=== PATIENT | male | born 1995 | race Hispanic/Latino ===

== ENCOUNTER 2020-03-23 19:46 | Emergency (ER) | payer MEDICAID, OTHER ==
[~2020-03-23 19:46] MED LIST: FOLI-114 PO; TRAM-355 PO
[2020-03-23] MEDS ORDERED: ACETAMINOPHEN EXTRA STRENGTH 500 MG TABLET ONE (20:11)
== END 2020-03-23 21:43 | disposition home or self-care (01) ==
LOC: EDH 19:46
DX: S13.9XXA Sprain of joints and ligaments of unspecified parts of neck, initial encounter (principal); S30.811A Abrasion of abdominal wall, initial encounter; V29.49XA Motorcycle driver injured in collision with other motor vehicles in traffic accident, initial encounter; Y93.89 Activity, other specified; Y92.488 Other paved roadways as the place of occurrence of the external cause; Y99.8 Other external cause status
CPT/HCPCS: 70450; 71045; 72125; 93005

== ENCOUNTER 2021-12-13 05:46 | Emergency (ER) | payer OTHER ==
[~2021-12-13] VITALS: Ht 167.6 cm; Wt 79.4 kg
[2021-12-13] MEDS ORDERED: IBUP-2070 PO (08:01)
[2021-12-13 08:11] VITALS: BP 132/75
== END 2021-12-13 08:27 | disposition home or self-care (01) ==
LOC: EDH 05:46
DX: S01.81XA Laceration without foreign body of other part of head, initial encounter (principal); Z79.899 Other long term (current) drug therapy; W26.8XXA Contact with other sharp object(s), not elsewhere classified, initial encounter; Y93.89 Activity, other specified; Y92.89 Other specified places as the place of occurrence of the external cause; Y99.8 Other external cause status
CPT/HCPCS: 12011; 12013; 99282